=== PATIENT | male | born 1990 | race Hispanic/Latino ===

== ENCOUNTER 2017-09-28 15:33 | Emergency (ER) | payer SELFPAY ==
[2017-09-28] MEDS ORDERED: Ondansetron ODT 4 MG TAB ONE (16:26)
== END 2017-09-28 17:11 | disposition home or self-care (01) ==
LOC: ERS 15:33
DX: R11.2 Nausea with vomiting, unspecified (principal); R19.7 Diarrhea, unspecified; F17.210 Nicotine dependence, cigarettes, uncomplicated
CPT/HCPCS: 99283; Q0162

== ENCOUNTER 2018-02-12 00:33 | Emergency (ER) | payer OTHER, SELFPAY ==
[2018-02-12 01:17] LABS: #Basophils 0.1 thou/uL (0.0-0.2); #Eosinphils 0.1 thou/uL (0.0-0.7); #Monocytes 0.4 thou/uL (0.11-0.59); #Neutrophils 3.5 thou/uL (1.40-6.50); %Basophils 0.7 % (0.0-1.0); %Eosinophils 1.4 % (0.0-10.0); %Lymphocytes 42.6 % (21.0-51.0); %Monocytes 6.1 % (0.0-10.0); %Neutrophils 49.2 % (42.0-75.0); Hemoglobin 16.2 g/dL (14.0-18.0); Mean Corpuscular HGB CONC 36.3 g/dL (32.0-36.0); Mean Corpuscular Hemoglobin 32.9 pg (27.0-31.0); Mean Corpuscular Volume 90.6 fL (78.0-98.0); Mean Platelet Volume 7.1 fL (7.4-10.4); Platelet Count 366 thou/uL (130-400); RBC Distribution Width 11.9 % (11.5-14.5); Red Blood Cell (RBC) Count 4.94 mill/uL (4.70-6.10); White Blood Cell (WBC) Count 7.1 thou/uL (4.8-10.8)
[2018-02-12 01:40] LABS: Acetaminophen Less than 6.0 mcg/mL (10.0-30.0); Alcohol 246 mg/dL (Less than 10)
[2018-02-12 01:41] LABS: ALT (SGPT) 37 U/L (8-55); AST (SGOT) 30 U/L (5-34); Albumin 4.7 g/dL (3.5-5.0); Alcohol 248 mg/dL (Less than 10); Alkaline Phosphatase 91 U/L (40-150); Anion Gap 15 mmol/L (10-20); BUN (Urea Nitrogen) 12 mg/dL (8.9-20.6); Bilirubin, Total 0.7 mg/dL (0.2-1.2); Calc. Creatinine Clearance 0 mL/min (70-130); Carbon Dioxide 21 mmol/L (22-29); Chloride 103 mmol/L (98-107); Estimated GFR-MDRD Greater than 90; Globulin 3.2 g/dL (2.4-3.5); Glucose 105 mg/dL (70-105); Potassium 3.3 mmol/L (3.5-5.1); Protein, Total 7.9 g/dL (6.0-8.3); Sodium 136 mmol/L (136-145)
[2018-02-12 02:35] LABS: Salicylate Less than 8.0 mg/dL (15.0-30.0)
[2018-02-12 03:16] LABS: Amphetamine Not Detected (NotDetected); Barbiturates Screen Not Detected (NotDetected); Benzodiazepine Screen Not Detected (NotDetected); Cocaine Metabolite Screen Not Detected (NotDetected); Medtox Control Line Valid? VALID (VALID); Medtox Reader # READER 4; Methadone Not Detected (NotDetected); Methamphetamine Not Detected (NotDetected); Opiate Screen Not Detected (NotDetected); Oxycodone Screen Not Detected (NotDetected); Phencyclidine (PCP) Not Detected (NotDetected); THC/Cannabinoid Screen Not Detected (NotDetected); Tricyclic Screen Not Detected (NotDetected)
[2018-02-12] MEDS ORDERED: Multivitamins, Adult 10 ML, Thiamine HCl 100 MG, Folic Acid 1 MG in Dextrose 5 %-0.45 %... IV SCH (04:00)
[2018-02-12] MEDS ORDERED: Lidocaine 1% (PF) 30 ML VIAL ONE (05:46)
[2018-02-12] MEDS ORDERED: Adacel (T-DAP) 0.5 ML VIAL ONE (05:53)
[2018-02-12] MEDS ORDERED: Bacitracin Zinc 1 Packet ONE (06:03)
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
== END 2018-02-12 11:29 | disposition home or self-care (01) ==
LOC: ERS 00:33
DX: S61.411A Laceration without foreign body of right hand, initial encounter (principal); S00.83XA Contusion of other part of head, initial encounter; T14.8XXA Other injury of unspecified body region, initial encounter; F10.10 Alcohol abuse, uncomplicated; F17.210 Nicotine dependence, cigarettes, uncomplicated; V49.9XXA Car occupant (driver) (passenger) injured in unspecified traffic accident, initial encounter
CPT/HCPCS: 12001; 36415; 51701; 70450; 71045; 71260; 72125; 74177; 80053; 80306; 80307; 83735; 85025; 90471; 90715; 96361; 96365; 96366; J2001; J3411; J7042

== ENCOUNTER 2018-07-23 16:34 | Emergency (ER) | payer SELFPAY ==
[2018-07-23] MEDS ORDERED: Acetaminophen 500 MG TAB ONE (17:17)
== END 2018-07-23 17:30 | disposition home or self-care (01) ==
LOC: ERS 16:34
DX: H72.92 Unspecified perforation of tympanic membrane, left ear (principal); F17.210 Nicotine dependence, cigarettes, uncomplicated
CPT/HCPCS: 99282

== ENCOUNTER 2019-06-07 16:21 | Emergency (ER) | payer SELFPAY | END 2019-06-07 16:50 | disposition home or self-care (01) | LOC: ERS 16:21 | DX: H66.93 Otitis media, unspecified, bilateral (principal); R09.81 Nasal congestion; F17.210 Nicotine dependence, cigarettes, uncomplicated | CPT/HCPCS: 99282 ==

== ENCOUNTER 2020-02-05 12:34 | Emergency (ER) | payer SELFPAY ==
[2020-02-05] MEDS ORDERED: Famotidine 20 MG TAB ONE (12:57)
[2020-02-05] MEDS ORDERED: hydrOXYzine 25 MG TAB ONE (12:58)
[2020-02-05] MEDS ORDERED: Dexamethasone 4 mg/ml Vial ONE (12:59)
== END 2020-02-05 13:18 | disposition home or self-care (01) ==
LOC: ERS 12:34
DX: R21 Rash and other nonspecific skin eruption (principal); T63.481A Toxic effect of venom of other arthropod, accidental (unintentional), initial encounter; F17.210 Nicotine dependence, cigarettes, uncomplicated
CPT/HCPCS: 99283; J1100

== ENCOUNTER 2022-09-26 17:40 | Emergency (ER) | payer OTHER, SELFPAY ==
[2022-09-26] MEDS ORDERED: HYDROcodone/Acetaminophen 5/325 mg Tablet ONE (18:01)
== END 2022-09-26 20:34 | disposition home or self-care (01) ==
LOC: ERS 17:40
DX: S52.124A Nondisplaced fracture of head of right radius, initial encounter for closed fracture (principal); F17.210 Nicotine dependence, cigarettes, uncomplicated; W01.0XXA Fall on same level from slipping, tripping and stumbling without subsequent striking against object, initial encounter; Y92.481 Parking lot as the place of occurrence of the external cause
CPT/HCPCS: 29105